=== PATIENT | female | born 1970 | race Caucasian/White ===

== ENCOUNTER 2017-11-03 15:40 | Emergency (ER) | payer OTHER ==
[2017-11-03 15:50] VITALS: TEMP 98.4
--- NOTE | 2017-11-03 16:18 | C.PDOC ---
History Of Present Illness 47 year old female presents to the emergency department accompanied by daughter with a complaint of a vaginal rash x3-4 days. As per daughter, patient cannot sit or walk without being in pain. Patient has same partner for many years. Denies vaginal discharge, fever, nausea, vomiting, diarrhea, or any urinary symptoms. Time Seen by Provider: 11/03/17 16:00 Chief Complaint (Nursing): Abnormal Skin Integrity History Per: Patient, Family (Daughter) History/Exam Limitations: no limitations Onset/Duration Of Symptoms: Days (x3-4 days) Past Medical History Reviewed: Historical Data, Nursing Documentation, Vital Signs Vital Signs: Last Vital Signs Temp 98.4 F 11/03/17 15:47 Pulse 96 H 11/03/17 15:47 Resp 20 11/03/17 15:47 BP 151/96 H 11/03/17 15:47 Pulse Ox 99 11/03/17 17:30 - Medical History PMH: HTN - Social History Hx Alcohol Use: No Hx Substance Use: No - Immunization History Hx Tetanus Toxoid Vaccination: No Hx Influenza Vaccination: No Hx Pneumococcal Vaccination: No Review Of Systems Except As Marked, All Systems Reviewed And Found Negative. (As per HPI, otherwise negative) Constitutional: Negative for: Fever Gastrointestinal: Negative for: Nausea, Vomiting Genitourinary: Positive for: Other (Vaginal rash). Negative for: Dysuria, Frequency, Incontinence, Hematuria, Vaginal Discharge Physical Exam - Physical Exam Appears: Well, Non-toxic, Toxic Skin: Normal Color, Warm, Dry Head: Atraumatic, Normacephalic Cardiovascular: Rhythm Regular, No Murmur Respiratory: Normal Breath Sounds, No Decreased Breath Sounds, No Accessory Muscle Use, No Wheezing Pelvic: No Normal External Exam (No fluctuance noted to the major labia b/l. No evidence of abscess. ), Other (([employer]: Tara) Major labia swelling noted bilaterally. Multiple scattered lesions noted.) Extremity: Normal ROM, No Pedal Edema Neurological/Psych: Oriented x3 (Alert ) ED Course And Treatment O2 Sat by Pulse Oximetry: 99 Disposition - Disposition Disposition: HOME/ ROUTINE Disposition Time: 17:30 Condition: STABLE Prescriptions: Clotrimazole 1% Vaginal [Clotrimazole] 1 appful VG BID #1 tube Fluconazole [Diflucan] 150 mg PO ONCE #1 tab metroNIDAZOLE [Flagyl] 500 mg PO BID #14 tab Forms: [facility] (Irish), General Discharge Instructions - Clinical Impression Clinical Impression: Vaginitis
[2017-11-03 17:51] VITALS: BP 132/83; PULSE 88; RESP 17; O2SAT 100
--- NOTE | 2017-11-03 18:14 | CP.PCM.CON ---
History of Present Illness - History of Present Illness History of Present Illness: 47 yr came with c/o vaginal disvharge with itching and irritatyion from 4- 5days. pt is uncontrolled diabtic and has not seen an obgyn.no dysuria. obhx 3 x pmh dm/htn med as per list soch de psh de sse ext gen redness, erytematousyellowisdh whitish disc, no cmt, ut anteveeted, no pal mass abd soft Review of Systems - Reproductive: Female Reproductive:Female: Genital Pruritis, Vaginal Discharge, Vaginal Odor Past Patient History - Past Social History Smoking Status: Never Smoked - CARDIAC Hx Hypertension: Yes - PSYCHIATRIC Hx Substance Use: No - SURGICAL HISTORY Hx Surgeries: No - ANESTHESIA Hx Anesthesia: No Meds Home Medications: Home Medication List Medication Instructions Recorded Confirmed Type Clotrimazole 1% Vaginal 1 appful VG BID #1 tube 11/03/17 Rx [Clotrimazole] Fluconazole [Diflucan] 150 mg PO ONCE #1 tab 11/03/17 Rx metroNIDAZOLE [Flagyl] 500 mg PO BID #14 tab 11/03/17 Rx Allergies/Adverse Reactions: Allergies Allergy/AdvReac Type Severity Reaction Status Date / Time No Known Allergies Allergy Verified 11/03/17 15:43 Physical Exam - Exam External exam: Erythema, Swelling Speculum exam: Cervical Discharge (yellowish whitish disc, no cmt) Bimanual exam: NORMAL BIMANUAL EXAM Results - Vital Signs Recent Vital Signs: Last Vital Signs Temp 98.4 F 11/03/17 15:47 Pulse 88 11/03/17 17:49 Resp 17 11/03/17 17:49 BP 132/83 11/03/17 17:49 Pulse Ox 100 11/03/17 17:49 - Labs Labs: Laboratory Results - last 24 hr 11/03/17 16:14 POC Glucose (mg/dL) 343 H Assessment & Plan - Assessment and Plan (Free Text) Assessment: 47 yr with bacerial vaginitis/yeast infection Plan: plan difucan 150 mg and repeat in 72 hrs flgyl 500 mg bid lotrisone cont dm and htn meds f/u dr chatman in 2-3days - Date & Time Date: 11/03/17 Time: 19:00
== END 2017-11-03 17:49 | disposition home or self-care (01) ==
LOC: C.ER 15:40
DX: B37.3 Candidiasis of vulva and vagina (principal)